=== PATIENT | male | born 1990 | race Caucasian/White ===

== ENCOUNTER 2017-11-28 11:47 | Emergency (ER) | payer OTHER, SELFPAY | END 2017-11-28 13:22 | disposition home or self-care (01) | PROVIDERS: Emergency Provider Nurse Practitioner; Visit Provider Nurse Practitioner | DX: J02.0 Streptococcal pharyngitis (principal) | CPT/HCPCS: 36415; 86318; 87880; 99201 ==

== ENCOUNTER 2018-02-14 09:02 | Emergency (ER) | payer OTHER, SELFPAY ==
[2018-02-14 09:12] VITALS: BP 131/78; PULSE 87; RESP 20; TEMP 36.9; O2SAT 97; BMI 38.0
--- NOTE | 2018-02-14 09:37 | HMH.EDABDPAI ---
ED Disposition Clinical Impression: Constipation Disposition: Home, Self-Care Condition on Discharge: Fair Instructions: DI for Acute Abdomen Additional Instructions: 1- healthy green leafy vegetable diey. 2- pcp list and start see a pcp for health care screening. 3- To return if new sx felix or if needed. - Critical Care Critical Care Time: No Attestation: On 02/14/18, the high probability of a clinically significant, sudden or life threatening deterioration of the following system(s) required my full and direct attention, intervention and personal management. The time I documented below is in addition to time spent performing reported procedures but includes the following listed in this critical care notation. Medical Decision Making - Sotero Inquiry Pt receiving controlled substance: No Sotero was queried for this patient: No Vital Signs: 02/14/18 09:12 02/14/18 09:46 Temperature 98.4 F Temperature Source Oral Pulse Rate [Orthostatic Lying Right Radial] 81 Pulse Rate [Orthostatic Sitting Right Radial] 85 Pulse Rate [Orthostatic Standing Right Radial] 89 Pulse Rate [Right Radial] 87 Respiratory Rate 20 Blood Pressure [Orthostatic Lying Right Arm] 141/78 Blood Pressure [Orthostatic Sitting Right Arm] 140/80 Blood Pressure [Orthostatic Standing Right Arm] 124/85 Blood Pressure [Right Arm] 131/78 Blood Pressure Mean [Right Arm] 95 Blood Pressure Source [Right Arm] Automatic Cuff Blood Pressure Position [Right Arm] Standing 02 Sat by Pulse Oximetry 97 Oxygen Delivery Method Room Air - Lab Data Lab results reviewed: Yes: I reviewed the patient's lab results. Lab Results 02/14/18 09:43: Stool Occult Blood Negative 02/14/18 09:53: WBC 6.2, RBC 5.49, Hgb 15.6, Hct 47.3, MCV 86.2, MCH 28.4, MCHC 32.9, RDW 12.4, Plt Count 264, MPV 8.8, Neut % (Auto) 52.9, Lymph % (Auto) 36.6, [place] % (Auto) 5.1, Eos % (Auto) 4.7, Baso % (Auto) 0.7, Neut # (Auto) 3.3, Lymph # (Auto) 2.3, [place] # (Auto) 0.3, Eos # (Auto) 0.3, Baso # (Auto) 0.1 02/14/18 09:53: Sodium 141, Potassium 4.2, Chloride 104, Carbon Dioxide 29, Anion Gap 12.2, BUN 14, Creatinine 0.99, Estimated Creat Clear 198, Estimated GFR 89, Est GFR ( Amer) 108, Glucose 94, Calcium 8.8, Total Bilirubin 0.3, AST 37, ALT 64, Alkaline Phosphatase 78, Troponin I < 0.02, Total Protein 8.0, Albumin 4.3, Globulin 3.7 H, Albumin/Globulin Ratio 1.2, Amylase 40, Lipase 89 02/14/18 11:49: Stool Occult Blood Negative Result diagrams: 02/14/18 09:53 02/14/18 09:53 Orders (Tests/Meds): ED MEDICATIONS Discontinued Medications Generic Name Dose Route Start Last Admin Trade Name Freq PRN Reason Stop Dose Admin Diatrizoate Meglum/Diatrizoate Sod 30 ml 02/14/18 09:45 02/14/18 10:07 Gastrografin 66%-10% 30ml PO 02/14/18 09:46 30 ml ONCE ONE Administration Famotidine 20 mg 02/14/18 09:45 02/14/18 10:07 Pepcid 20mg/2ml Vial IV 02/14/18 09:46 20 mg ONCE ONE Administration Sodium Chloride 1,000 mls @ 999 mls/hr 02/14/18 09:45 02/14/18 10:07 Sod Chlor 0.9% 1000ml Bag IV 02/14/18 10:45 999 mls/hr .Q1H1M ADRIANA Administration Iopamidol 75 ml 02/14/18 11:55 02/14/18 11:57 [id number]; 75ml Vial IV 02/14/18 11:56 75 ml ONCE ONE Administration Sodium Chloride 10 ml 02/14/18 11:55 02/14/18 11:57 Rad-Saline Flush 10ml Syringe IV 02/14/18 11:56 10 ml ONCE ONE Administration ORDERS Category Date Time Status H. pylori, IgG Abs Stat Lab 02/14/18 09:53 Received - CT Data CT Scan: Abdomen, Pelvis Time Received: 12:[address] Reviewed: Yes: I have viewed the radiologist's interpretation Preliminary Findings: Normal/NAD Medical Decision Narrative: IMPRESSION: Cholelithiasis no other significant abdominal or pelvic pathology identified. The patient underwent normal labs and negative seated. He had negative orthostatic blood pressure. His Hemoccult stool was negative. He remained asy
--- NOTE | 2018-02-14 09:41 | ED_ITS ---
ED Disposition Clinical Impression: Constipation Disposition: Home, Self-Care Condition on Discharge: Fair Instructions: DI for Acute Abdomen Additional Instructions: 1- healthy green leafy vegetable diey. 2- pcp list and start see a pcp for health care screening. 3- To return if new sx felix or if needed. - Critical Care Critical Care Time: No Attestation: On 02/14/18, the high probability of a clinically significant, sudden or life threatening deterioration of the following system(s) required my full and direct attention, intervention and personal management. The time I documented below is in addition to time spent performing reported procedures but includes the following listed in this critical care notation. Medical Decision Making - Sotero Inquiry Pt receiving controlled substance: No Sotero was queried for this patient: No Vital Signs: 02/14/18 09:12 02/14/18 09:46 Temperature 98.4 F Temperature Source Oral Pulse Rate [Orthostatic Lying Right Radial] 81 Pulse Rate [Orthostatic Sitting Right Radial] 85 Pulse Rate [Orthostatic Standing Right Radial] 89 Pulse Rate [Right Radial] 87 Respiratory Rate 20 Blood Pressure [Orthostatic Lying Right Arm] 141/78 Blood Pressure [Orthostatic Sitting Right Arm] 140/80 Blood Pressure [Orthostatic Standing Right Arm] 124/85 Blood Pressure [Right Arm] 131/78 Blood Pressure Mean [Right Arm] 95 Blood Pressure Source [Right Arm] Automatic Cuff Blood Pressure Position [Right Arm] Standing 02 Sat by Pulse Oximetry 97 Oxygen Delivery Method Room Air - Lab Data Lab results reviewed: Yes: I reviewed the patient's lab results. Lab Results 02/14/18 09:43: Stool Occult Blood Negative 02/14/18 09:53: WBC 6.2, RBC 5.49, Hgb 15.6, Hct 47.3, MCV 86.2, MCH 28.4, MCHC 32.9, RDW 12.4, Plt Count 264, MPV 8.8, Neut % (Auto) 52.9, Lymph % (Auto) 36.6 , [place] % (Auto) 5.1, Eos % (Auto) 4.7, Baso % (Auto) 0.7, Neut # (Auto) 3.3, Lymph # (Auto) 2.3, [place] # (Auto) 0.3, Eos # (Auto) 0.3, Baso # (Auto) 0.1 02/14/18 09:53: Sodium 141, Potassium 4.2, Chloride 104, Carbon Dioxide 29, Anion Gap 12.2, BUN 14, Creatinine 0.99, Estimated Creat Clear 198, Estimated GFR 89, Est GFR ( Amer) 108, Glucose 94, Calcium 8.8, Total Bilirubin 0.3 , AST 37, ALT 64, Alkaline Phosphatase 78, Troponin I < 0.02, Total Protein 8.0 , Albumin 4.3, Globulin 3.7 H, Albumin/Globulin Ratio 1.2, Amylase 40, Lipase 89 02/14/18 11:49: Stool Occult Blood Negative Result diagrams: 02/14/18 09:53 02/14/18 09:53 Orders (Tests/Meds): ED MEDICATIONS Discontinued Medications Generic Name Dose Route Start Last Admin Trade Name Freq PRN Reason Stop Dose Admin Diatrizoate Meglum/Diatrizoate Sod 30 ml 02/14/18 09:45 02/14/18 10:07 Gastrografin 66%-10% 30ml PO 02/14/18 09:46 30 ml ONCE ONE Administration Famotidine 20 mg 02/14/18 09:45 02/14/18 10:07 Pepcid 20mg/2ml Vial IV 02/14/18 09:46 20 mg ONCE ONE Administration Sodium Chloride 1,000 mls @ 999 mls/hr 02/14/18 09:45 02/14/18 10:07 Sod Chlor 0.9% 1000ml Bag IV 02/14/18 10:45 999 mls/hr .Q1H1M ADRIANA Administration Iopamidol 75 ml 02/14/18 11:55 02/14/18 11:57 [id number]; 75ml Vial IV 02/14/18 11:56 75 ml ONCE ONE Administration Sodium Chloride 10 ml 02/14/18 11:55
--- NOTE | 2018-02-14 09:43 | CT_ITS ---
CT abdomen pelvis w con COMPARISON: None HISTORY: Epigastric plane with black stool TECHNIQUE: Multiaxial scans obtained from hemidiaphragms the pelvic floor and were performed with IV and oral contrast. Sagittal and coronal reformats were evaluated as well. FINDINGS: The lower lung pablo are clear. Liver and spleen and stomach appear grossly normal. A small gallstone near the neck of the gallbladder. The pancreas appears normal. The adrenal glands are normal. The kidneys are normal size and show symmetrical function both appearing normal. The contrast-filled loops of small bowel appear normal. The appendix is normal caliber and retrocecal in location. There is a moderate amount stool throughout the the urinary bladder and prostate appear normal. Colon. IMPRESSION: Cholelithiasis no other significant abdominal or pelvic pathology identified.
[2018-02-14 09:46] VITALS: BP 124/85; BP 140/80; BP 141/78; PULSE 81; PULSE 85; PULSE 89
[2018-02-14 10:09] LABS: Basophils # 0.1 K/mm3 (0-0.2); Basophils % 0.7 % (0.1-2.0); Eosinophils # 0.3 K/mm3 (0.0-0.4); Eosinophils % 4.7 % (0.1-12.0); Hematocrit 47.3 % (42.0-52.0); Hemoglobin 15.6 g/dL (14.1-18.0); Lymphocytes # 2.3 K/mm3 (0.7-4.5); Lymphocytes % 36.6 K/mm3 (10-50); Mean Corpuscular HGB Conc 32.9 g/dL (31.8-35.4); Mean Corpuscular Hemoglobin 28.4 pg (27.0-31.2); Mean Corpuscular Volume 86.2 fl (80-94); Mean Platelet Volume 8.8 fl (7.4-10.4); Monocytes # 0.3 K/mm3 (0.1-1.0); Monocytes % 5.1 % (1.7-9.3); Neutrophils # 3.3 K/mm3 (1.8-7.8); Neutrophils % 52.9 % (37.0-80.0); Platelet Count 264 K/mm3 (142-424); Red Blood Count 5.49 M/mm3 (4.60-6.20); Red Cell Distribution Width 12.4 % (11.5-17.5); White Blood Count 6.2 K/mm3 (4.8-10.8)
[2018-02-14 10:09] LABS: Occult Blood,Stool Negative (Negative)
[2018-02-14 10:22] LABS: Alanine Aminotransferase 64 U/L (12-78); Albumin Level 4.3 gm/dL (3.4-5.0); Albumin/Globulin Ratio 1.2 (1.1-1.8); Alkaline Phosphatase 78 U/L (46-116); Amylase 40 U/L (25-125); Anion Gap 12.2 mEq/L (5-15); Aspartate Amino Transferase 37 U/L (15-37); Bilirubin,Total 0.3 mg/dL (0.2-1.0); Blood Urea Nitrogen 14 mg/dL (7-18); Calcium 8.8 mg/dL (8.5-10.1); Carbon Dioxide 29 mmol/L (21.0-32.0); Chloride 104 mmol/L (98-107); Creatinine Clearance Estimated 198 mL/min (0-300); Creatinine,Serum 0.99 mg/dL (0.70-1.30); Estimated Glomerular Filt Rate 89 ml/min (>60); GFR (African American) 108 ML/MIN (>60); Globulin 3.7 gm/dl (1.3-3.2); Glucose 94 mg/dL (74-106); Lipase 89 u/L (73-393); Potassium 4.2 mmoL/L (3.5-5.1); Sodium 141 mmol/L (136-145); Troponin I < 0.02 ng/ml (0.00-0.06)
--- NOTE | 2018-02-14 11:46 | PC.NURSE ---
Dr Cuello called report of Ct scan of abdomen to Dr Cid
[2018-02-14 12:12] LABS: Occult Blood,Stool Negative (Negative)
[2018-02-14 12:42] VITALS: BP 124/76; PULSE 82; RESP 18; TEMP 36.8; O2SAT 97
== END 2018-02-14 12:47 | disposition home or self-care (01) ==
PROVIDERS: Emergency Provider Emergency Medicine
DX: K59.00 Constipation, unspecified (principal); F32.9 Major depressive disorder, single episode, unspecified; J45.909 Unspecified asthma, uncomplicated; Z88.0 Allergy status to penicillin
CPT/HCPCS: 74177; 80053; 82150; 82272; 83690; 84484; 85025; 86677; 96365; 96375; 99283; G0328; Q9967

== ENCOUNTER → 2018-03-22 09:24 | Outpatient (CLI) | payer OTHER, SELFPAY ==
--- NOTE | 2018-03-22 09:26 | US_ITS ---
US abdomen limited: HISTORY: ITS.REASON: Right upper quad pain, abnormal CT scan showing gallstone ORDERING PHYSICIAN: Mic Ssoa MD PATIENT AGE: 27 years COMPARISON: 02/14/2018 FINDINGS: PANCREAS: Poorly demonstrated due to overlying bowel gas. LIVER: No focal liver lesions demonstrated. Homogeneous echogenicity. No intrahepatic biliary ductal dilatation evident RIGHT KIDNEY: Unremarkable. Normal size and echogenicity. No hydronephrosis GALLBLADDER: There is a gallstone present. No gallbladder wall thickening, pericholecystic fluid, or biliary dilatation. Common bile duct is 2 mm. IMPRESSION: Cholelithiasis
== END ==
PROVIDERS: PCP Emergency Medicine; Visit Provider Emergency Medicine
DX: K80.20 Calculus of gallbladder without cholecystitis without obstruction (principal)
CPT/HCPCS: 76705

== ENCOUNTER → 2018-03-24 07:44 | Outpatient (CLI) | payer OTHER, SELFPAY ==
--- NOTE | 2018-03-24 07:46 | MR_ITS ---
MR head/brain wo con HISTORY: ITS.REASON: Nystagmus ORDERING PHYSICIAN: Mic Sosa MD PATIENT AGE: 27 years TECHNIQUE: Standard multiplanar multiecho sequences are performed without contrast. FINDINGS: No midline shift, mass effect, intracranial hemorrhage, or hydrocephalus. No evidence of acute infarction. There is normal montes-white matter differentiation. The pituitary gland and optic chiasm have an unremarkable appearance. No cerebellar ectopia. No large aneurysms are evident. Small aneurysms may not be delineated by this technique and may be better evaluated for with MRA if clinically warranted. The hippocampal structures are unremarkable and the temporal horns are symmetric. The cerebellopontine angles, cerebellum, and brainstem are unremarkable. No mastoid effusion or sinus air-fluid level. IMPRESSION: Negative MRI of the brain without contrast
== END ==
PROVIDERS: PCP Emergency Medicine; Visit Provider Emergency Medicine
DX: H55.00 Unspecified nystagmus (principal)
CPT/HCPCS: 70551

== ENCOUNTER → 2018-05-24 15:36 | Outpatient (CLI) | payer OTHER, SELFPAY ==
[2018-05-24 16:23] LABS: Basophils % 0.5 % (0.1-2.0); Eosinophils # 0.3 K/mm3 (0.0-0.4); Eosinophils % 5.2 % (0.1-12.0); Hemoglobin 15.9 g/dL (14.1-18.0); Lymphocytes # 2.3 K/mm3 (0.7-4.5); Lymphocytes % 36.5 K/mm3 (10-50); Mean Corpuscular HGB Conc 33.1 g/dL (31.8-35.4); Mean Corpuscular Hemoglobin 28.1 pg (27.0-31.2); Mean Corpuscular Volume 84.9 fl (80-94); Mean Platelet Volume 9.1 fl (7.4-10.4); Monocytes # 0.3 K/mm3 (0.1-1.0); Neutrophils # 3.4 K/mm3 (1.8-7.8); Neutrophils % 52.8 % (37.0-80.0); Platelet Count 274 K/mm3 (142-424); Red Blood Count 5.66 M/mm3 (4.60-6.20); Red Cell Distribution Width 12.4 % (11.5-17.5); White Blood Count 6.4 K/mm3 (4.8-10.8)
[2018-05-24 18:38] LABS: Alanine Aminotransferase 48 U/L (12-78); Albumin Level 3.9 gm/dL (3.4-5.0); Albumin/Globulin Ratio 1.3 (1.1-1.8); Alkaline Phosphatase 83 U/L (46-116); Anion Gap 11.8 mEq/L (5-15); Aspartate Amino Transferase 27 U/L (15-37); Bilirubin,Total 0.3 mg/dL (0.2-1.0); Blood Urea Nitrogen 13 mg/dL (7-18); Calcium 8.7 mg/dL (8.5-10.1); Carbon Dioxide 29 mmol/L (21.0-32.0); Chloride 105 mmol/L (98-107); Creatinine,Serum 0.88 mg/dL (0.70-1.30); Estimated Glomerular Filt Rate 102 ml/min (>60); GFR (African American) 124 ML/MIN (>60); Globulin 2.9 gm/dl (1.3-3.2); Glucose 93 mg/dL (74-106); Potassium 4.8 mmoL/L (3.5-5.1); Sodium 141 mmol/L (136-145); Total Protein,Serum 6.8 gm/dL (6.4-8.2)
== END ==
PROVIDERS: Visit Provider Surgery
DX: Z01.818 Encounter for other preprocedural examination (principal); K82.9 Disease of gallbladder, unspecified; K80.20 Calculus of gallbladder without cholecystitis without obstruction
CPT/HCPCS: 36415; 80053; 85025

== ENCOUNTER → 2018-08-16 08:25 | Outpatient (POV) | payer OTHER, SELFPAY | PROVIDERS: Visit Provider Nurse Practitioner Acute Care | DX: Z00.00 Encounter for general adult medical examination without abnormal findings (principal) ==

== ENCOUNTER → 2018-10-11 11:52 | Outpatient (CLI) | payer OTHER, SELFPAY ==
[2018-10-11 12:24] LABS: Basophils # 0.1 K/mm3 (0-0.2); Basophils % 0.9 % (0.1-2.0); Eosinophils # 0.5 K/mm3 (0.0-0.4); Eosinophils % 6.9 % (0.1-12.0); Hematocrit 46.7 % (42.0-52.0); Hemoglobin 15.6 g/dL (14.1-18.0); Lymphocytes # 2.3 K/mm3 (0.7-4.5); Lymphocytes % 31.5 % (10-50); Mean Corpuscular HGB Conc 33.4 g/dL (31.8-35.4); Mean Corpuscular Hemoglobin 28.8 pg (27.0-31.2); Mean Corpuscular Volume 86.2 fl (80-94); Mean Platelet Volume 8.9 fl (7.4-10.4); Monocytes # 0.4 K/mm3 (0.1-1.0); Monocytes % 4.8 % (1.7-9.3); Neutrophils % 55.8 % (37.0-80.0); Platelet Count 261 K/mm3 (142-424); Red Blood Count 5.42 M/mm3 (4.60-6.20); Red Cell Distribution Width 12.8 % (11.5-17.5); White Blood Count 7.2 K/mm3 (4.8-10.8)
[2018-10-12 11:46] LABS: Vitamin D 25 Hydroxy 19.6 ng/mL (30.0-100.0)
[2018-10-14 06:59] LABS: Immunoglobulin E, Total 132 IU/mL (0-100)
== END ==
PROVIDERS: Visit Provider Nurse Practitioner
DX: J45.50 Severe persistent asthma, uncomplicated (principal); E55.9 Vitamin D deficiency, unspecified
CPT/HCPCS: 36415; 82652; 82785; 85025

== ENCOUNTER → 2020-09-13 14:38 | Outpatient (CLI) | payer OTHER, SELFPAY ==
[2020-09-13 15:57] LABS: Monocytes # 0.4 K/mm3 (0.1-1.0)
[2020-09-13 16:00] LABS: MANUAL DIFFERENTIAL MANUAL DIFFERENTIAL (MANUAL DIFF)
[2020-09-13 16:05] LABS: Alanine Aminotransferase 42 U/L (12-78); Albumin Level 4.2 g/dl (3.5-5.0); Albumin/Globulin Ratio 1.5 (1.1-1.8); Alkaline Phosphatase 78 U/L (38-126); Aspartate Amino Transferase 35 U/L (17-59); Bilirubin,Total 0.7 mg/dl (0.2-1.3); Blood Urea Nitrogen 15 mg/dl (9-20); Calcium 9.6 mg/dl (8.4-10.2); Carbon Dioxide 30 mmol/L (22.0-30.0); Chloride 103 mmol/L (98-107); Chol/HDL Ratio 4.4 (1-3.5); Cholesterol 183 mg/dl (140-200); Estimated Glomerular Filt Rate 98 ml/min (>60); GFR (African American) 118 ML/MIN (>60); Globulin 2.8 g/dL (1.3-3.2); Glucose 103 mg/dl (74-100); HDL Cholesterol 42 mg/dl (40-60); Sodium 140 mmol/L (136-145); Triglycerides 147 mg/dl (30-150); VLDL Cholesterol 29 mg/dL (0-40)
[2020-09-13 16:16] LABS: Direct LDL Cholesterol 127.15 mg/dL (100-129)
[2020-09-13 16:22] LABS: Free T4 (Free Thyroxine) 1.08 ng/dl (0.78-2.19)
[2020-09-13 16:25] LABS: Hematocrit 49.6 % (42.0-52.0); Hemoglobin 16.1 g/dL (14.1-18.0); Lymphocytes % 33.4 % (10-50); Mean Corpuscular HGB Conc 32.4 g/dL (31.8-35.4); Mean Corpuscular Hemoglobin 28.8 pg (27.0-31.2); Mean Platelet Volume 9.8 fl (7.4-10.4); Monocytes % 6.4 % (1.7-9.3); Neutrophils % 56.4 % (37.0-80.0); Platelet Count 271 K/mm3 (142-424); Red Blood Count 5.57 M/mm3 (4.60-6.20); Red Cell Distribution Width 13.2 % (11.5-17.5); White Blood Count 6.3 K/mm3 (4.8-10.8)
[2020-09-13 16:26] LABS: Basophils % 0.5 % (0.1-2.0); Eosinophils # 0.2 K/mm3 (0.0-0.4); Eosinophils % 3.3 % (0.1-12.0); Lymphocytes # 2.1 K/mm3 (0.7-4.5); Neutrophils # 3.5 K/mm3 (1.8-7.8)
[2020-09-13 16:36] LABS: Thyroid Stimulating Hormone 1.21 uIU/mL (0.465-4.68)
[2020-09-13 16:40] LABS: Eosinophils % 3 % (0-3); Lymphocytes % 38 % (10-50); Monocytes % 8 % (2-9); Neutrophils % 51 % (42-76); Platelet Estimate Normal; RBC Morphology Normal; Total Cells Counted 100
== END ==
PROVIDERS: Visit Provider Nurse Practitioner Family
DX: D64.9 Anemia, unspecified (principal); K59.00 Constipation, unspecified
CPT/HCPCS: 80053; 80061; 84439; 84443; 85007; 85025